=== PATIENT | female | born 1955 | race Two or more races ===

== ENCOUNTER → 2016-04-30 | Outpatient (CLI) | payer BC ==
[2016-04-30 21:02] LABS: Hepatitis B Surface Antibody Negative
== END | disposition home or self-care (01) ==
LOC: LAB 10:28
PROVIDERS: ATTEND Internal Medicine Cardiovascular Disease
DX: K75.9 Inflammatory liver disease, unspecified (principal)
CPT/HCPCS: 36415; 86704; 86706; 86708; 86803; 87340

== ENCOUNTER → 2016-08-31 | Outpatient (CLI) | payer BC ==
[2016-08-31 12:45] LABS: Basophils # (auto) 0 uL; Basophils % (auto) 0.5 % (0.0-2.0); Eosinophils # (auto) 0.2 uL; Eosinophils % (auto) 2.2 % (0.0-7.0); Hematocrit 45.8 % (36.0-46.0); Hemoglobin 15.4 g/dL (12.2-16.2); Lymphocytes # (auto) 2.9 uL; Lymphocytes % (auto) 38.4 % (10.0-50.0); Mean Corpuscular Hgb Conc. 33.7 g/dL (32.0-36.0); Mean Corpuscular Volume 92.2 fL (80.0-100.0); Mean Platelet Volume 10.3 fL (7.4-10.4); Monocytes # (auto) 0.4 uL; Monocytes % (auto) 5.4 % (0.0-12.0); Neutrophils # (auto) 4.1 uL; Neutrophils % (auto) 53.5 % (37.0-80.0); Platelet Count (auto) 246 10^3/uL (140-450); Red Cell Distribution Width 13.2 % (11.6-16.0); White Blood Cell 7.6 10^3/uL (4.4-10.8)
[2016-08-31 12:48] LABS: Urine Bilirubin Negative (Negative); Urine Blood Negative /uL (Negative); Urine Color Yellow (Yellow); Urine Glucose Normal (Normal); Urine Ketone Negative (Negative); Urine Nitrite Negative (Negative); Urine Urobilinogen Normal (Negative)
[2016-08-31 13:07] LABS: Albumin 4.2 g/dL (3.4-5.0); BUN/Creatinine Ratio 14.7; Bilirubin, Direct 0.1 mg/dL (0-0.2); Bilirubin, Total 0.6 mg/dL (0.2-1.0); Calcium 9.7 mg/dL (8.5-10.1); Potassium 4.5 mmol/L (3.5-5.1); Total Protein 8.1 g/dL (6.4-8.2)
== END | disposition home or self-care (01) ==
LOC: LAB 10:22
PROVIDERS: ATTEND Internal Medicine Cardiovascular Disease
DX: I10 Essential (primary) hypertension (principal); E78.00 Pure hypercholesterolemia, unspecified; K74.1 Hepatic sclerosis; E11.9 Type 2 diabetes mellitus without complications; E03.9 Hypothyroidism, unspecified; D64.9 Anemia, unspecified; E55.9 Vitamin D deficiency, unspecified; N39.0 Urinary tract infection, site not specified
CPT/HCPCS: 36415; 80048; 80061; 80076; 81003; 82306; 83036; 84439; 84443; 85025; 86704; 86706; 86708; 86803; 87340

== ENCOUNTER → 2017-02-06 | Outpatient (CLI) | payer BC | END | disposition home or self-care (01) | LOC: Rad HDHVI 11:53 | PROVIDERS: ATTEND Internal Medicine Cardiovascular Disease | DX: I70.0 Atherosclerosis of aorta (principal) | CPT/HCPCS: 71020; 71101 ==

== ENCOUNTER → 2018-06-20 | Outpatient (CLI) | payer BC ==
[2018-06-20 16:15] LABS: Hematocrit 45.5 % (36.0-46.0); Hemoglobin 15.3 g/dL (12.2-16.2)
== END | disposition home or self-care (01) ==
LOC: LAB 11:54
PROVIDERS: ATTEND Internal Medicine Cardiovascular Disease
DX: D64.9 Anemia, unspecified (principal)
CPT/HCPCS: 36415; 85014; 85018

== ENCOUNTER → 2018-09-18 | Outpatient (CLI) | payer BC ==
[2018-09-18 11:55] LABS: Urine Blood Negative /uL (Negative); Urine Specific Gravity 1.022 (1.001-1.035)
[2018-09-18 12:04] LABS: Albumin 3.9 g/dL (3.4-5.0); Calcium 9.1 mg/dL (8.5-10.1)
[2018-09-18 12:10] LABS: BUN/Creatinine Ratio 21.4; Bilirubin, Total 0.5 mg/dL (0.2-1.0); Total Protein 7.1 g/dL (6.4-8.2)
[2018-09-18 12:15] LABS: Basophils # (auto) 0 uL; Basophils % (auto) 0.7 % (0.0-2.0); Eosinophils # (auto) 0.2 uL; Eosinophils % (auto) 3.2 % (0.0-7.0); Hematocrit 42.5 % (36.0-46.0); Hemoglobin 14.1 g/dL (12.2-16.2); Lymphocytes # (auto) 2.8 uL; Lymphocytes % (auto) 43.1 % (10.0-50.0); Mean Corpuscular Hemoglobin 31.4 pg (28.0-32.0); Mean Corpuscular Hgb Conc. 33.2 g/dL (32.0-36.0); Mean Corpuscular Volume 94.5 fL (80.0-100.0); Monocytes # (auto) 0.4 uL; Monocytes % (auto) 5.4 % (0.0-12.0); Neutrophils # (auto) 3.1 uL; Neutrophils % (auto) 47.6 % (37.0-80.0); Platelet Count (auto) 220 10^3/uL (140-450); Red Blood Cells 4.49 10^6/uL (4.0-5.20); Red Cell Distribution Width 13.2 % (11.8-14.3); White Blood Cell 6.5 10^3/uL (4.4-10.8)
[2018-09-18 12:16] LABS: Free T4 (Free Thyroxine) 1.05 ng/dL (0.89-1.76)
== END | disposition home or self-care (01) ==
LOC: LAB 08:21
PROVIDERS: ATTEND Internal Medicine Cardiovascular Disease
DX: Z00.00 Encounter for general adult medical examination without abnormal findings (principal); E03.9 Hypothyroidism, unspecified; E55.9 Vitamin D deficiency, unspecified; D51.9 Vitamin B12 deficiency anemia, unspecified; N39.0 Urinary tract infection, site not specified; Z79.899 Other long term (current) drug therapy; Z20.5 Contact with and (suspected) exposure to viral hepatitis
CPT/HCPCS: 36415; 80053; 80061; 81003; 82306; 82607; 83036; 84439; 84443; 85025; 86803

== ENCOUNTER 2019-11-15 15:43 | Emergency (ER) | payer BC ==
[~2019-11-15] VITALS: Ht 152.4 cm; Wt 73.5 kg
[2019-11-15 19:21] VITALS: BP 164/74
== END 2019-11-15 19:51 | disposition home or self-care (01) ==
LOC: ER 15:43
DX: S09.90XA Unspecified injury of head, initial encounter (principal); W19.XXXA Unspecified fall, initial encounter; Y93.89 Activity, other specified; Y92.89 Other specified places as the place of occurrence of the external cause; Y99.8 Other external cause status
CPT/HCPCS: 70450

== ENCOUNTER 2024-08-24 11:23 | Outpatient (CLI) | payer MEDICARE, BC ==
[2024-08-24 11:20] VITALS: BP 151/90; PULSE 70; RESP 18; O2SAT 99
[2024-08-24] MEDS: IRON SUCROSE COMPLEX 110 ML IV ONE (11:30)
[2024-08-24] MEDS: IRON SUCROSE 20 mg/ml 10ml VIAL IV ONE (11:32)
[2024-08-24 12:36] VITALS: BP 134/72; PULSE 63; RESP 16; O2SAT 99
== END 2024-08-24 17:00 | disposition home or self-care (01) ==
LOC: CHF HDHVI 11:23
PROVIDERS: ATTEND Internal Medicine Cardiovascular Disease
DX: D50.9 Iron deficiency anemia, unspecified (principal); D64.9 Anemia, unspecified; R53.83 Other fatigue; I78.0 Hereditary hemorrhagic telangiectasia; I10 Essential (primary) hypertension; E03.9 Hypothyroidism, unspecified; D51.9 Vitamin B12 deficiency anemia, unspecified; E55.9 Vitamin D deficiency, unspecified; E78.00 Pure hypercholesterolemia, unspecified; E11.9 Type 2 diabetes mellitus without complications; M81.0 Age-related osteoporosis without current pathological fracture; Z87.440 Personal history of urinary (tract) infections; Z79.899 Other long term (current) drug therapy
CPT/HCPCS: 96365; G0463; J1756

== ENCOUNTER 2024-09-10 10:21 | Outpatient (CLI) | payer MEDICARE, BC ==
[2024-09-10 10:23] VITALS: BP 121/71; PULSE 67; RESP 16; O2SAT 97
[2024-09-10] MEDS: IRON SUCROSE 20 mg/ml 10ml VIAL IV ONE (10:26)
[2024-09-10] MEDS: IRON SUCROSE COMPLEX 110 ML IV ONE (10:39)
[2024-09-10 11:44] VITALS: BP 125/61; PULSE 62; RESP 16; O2SAT 97
== END 2024-09-10 17:00 | disposition home or self-care (01) ==
LOC: CHF HDHVI 10:21
PROVIDERS: ATTEND Internal Medicine Cardiovascular Disease
DX: D50.8 Other iron deficiency anemias (principal); M81.0 Age-related osteoporosis without current pathological fracture; E03.9 Hypothyroidism, unspecified; E78.00 Pure hypercholesterolemia, unspecified; E11.9 Type 2 diabetes mellitus without complications; I11.9 Hypertensive heart disease without heart failure; Z79.899 Other long term (current) drug therapy
CPT/HCPCS: 96365; G0463; J1756

== ENCOUNTER 2024-09-14 08:00 | Outpatient (CLI) | payer MEDICARE, BC | END 2024-09-14 17:00 | disposition home or self-care (01) | LOC: Rad HDHVI 08:00 | PROVIDERS: ATTEND Internal Medicine Cardiovascular Disease | DX: I08.2 Rheumatic disorders of both aortic and tricuspid valves (principal); I11.9 Hypertensive heart disease without heart failure | CPT/HCPCS: 93306 ==

== ENCOUNTER → 2024-09-18 | Outpatient (CLI) | payer MEDICARE, BC ==
[~2024-09-18] VITALS: Ht 152.4 cm; Wt 65.8 kg
== END | disposition home or self-care (01) ==
LOC: Rad HDHVI 08:00
PROVIDERS: ATTEND Internal Medicine Cardiovascular Disease
DX: I45.10 Unspecified right bundle-branch block (principal); R00.0 Tachycardia, unspecified; Z13.6 Encounter for screening for cardiovascular disorders; I10 Essential (primary) hypertension; E11.9 Type 2 diabetes mellitus without complications; R06.02 Shortness of breath; R07.89 Other chest pain; E78.00 Pure hypercholesterolemia, unspecified; Z82.49 Family history of ischemic heart disease and other diseases of the circulatory system
CPT/HCPCS: 78452; 93017; A9500; 96374

== ENCOUNTER 2024-10-07 10:27 | Outpatient (CLI) | payer MEDICARE, BC ==
[2024-10-07 10:30] VITALS: BP 106/67; PULSE 67; RESP 16; O2SAT 99
[2024-10-07] MEDS: IRON SUCROSE 20 mg/ml 10ml VIAL IV ONE (10:33)
[2024-10-07] MEDS: IRON SUCROSE COMPLEX 110 ML IV ONE (10:35)
[2024-10-07 11:49] VITALS: BP 131/69; PULSE 84; RESP 17; O2SAT 97
== END 2024-10-07 17:00 | disposition home or self-care (01) ==
LOC: CHF HDHVI 10:27
PROVIDERS: ATTEND Internal Medicine Cardiovascular Disease
DX: D50.0 Iron deficiency anemia secondary to blood loss (chronic) (principal); K92.2 Gastrointestinal hemorrhage, unspecified; I11.9 Hypertensive heart disease without heart failure; I78.0 Hereditary hemorrhagic telangiectasia; E11.9 Type 2 diabetes mellitus without complications; M81.0 Age-related osteoporosis without current pathological fracture; E78.00 Pure hypercholesterolemia, unspecified; E03.9 Hypothyroidism, unspecified; Z79.899 Other long term (current) drug therapy
CPT/HCPCS: 96365; G0463; J1756

== ENCOUNTER 2024-10-19 10:26 | Outpatient (CLI) | payer MEDICARE, BC ==
[2024-10-19 10:35] VITALS: BP 122/62; PULSE 66; RESP 16; O2SAT 99
[2024-10-19] MEDS: IRON SUCROSE 20 mg/ml 10ml VIAL IV ONE (10:51)
[2024-10-19] MEDS: IRON SUCROSE COMPLEX 110 ML IV ONE (10:53)
[2024-10-19 11:55] VITALS: BP 113/67; PULSE 62; RESP 16; O2SAT 99
== END 2024-10-19 17:00 | disposition home or self-care (01) ==
LOC: CHF HDHVI 10:26
PROVIDERS: ATTEND Internal Medicine Cardiovascular Disease
DX: D50.0 Iron deficiency anemia secondary to blood loss (chronic) (principal); K92.2 Gastrointestinal hemorrhage, unspecified; M81.0 Age-related osteoporosis without current pathological fracture; I78.0 Hereditary hemorrhagic telangiectasia; I11.9 Hypertensive heart disease without heart failure; E03.9 Hypothyroidism, unspecified; E78.00 Pure hypercholesterolemia, unspecified; E11.9 Type 2 diabetes mellitus without complications; Z79.899 Other long term (current) drug therapy; Z87.440 Personal history of urinary (tract) infections
CPT/HCPCS: 96365; G0463; J1756

== ENCOUNTER 2024-11-04 10:23 | Outpatient (CLI) | payer MEDICARE, BC ==
[2024-11-04 10:43] VITALS: BP 120/69; PULSE 67; RESP 16; O2SAT 98
[2024-11-04] MEDS: IRON SUCROSE 20 mg/ml 10ml VIAL IV ONE (10:53)
[2024-11-04] MEDS: IRON SUCROSE COMPLEX 110 ML IV ONE (10:56)
[2024-11-04 12:01] VITALS: BP 117/67; PULSE 61; RESP 16; O2SAT 98
== END 2024-11-04 17:00 | disposition home or self-care (01) ==
LOC: CHF HDHVI 10:23
PROVIDERS: ATTEND Internal Medicine Cardiovascular Disease
DX: D50.0 Iron deficiency anemia secondary to blood loss (chronic) (principal); K92.2 Gastrointestinal hemorrhage, unspecified; I11.9 Hypertensive heart disease without heart failure; I78.0 Hereditary hemorrhagic telangiectasia; M81.0 Age-related osteoporosis without current pathological fracture; E03.9 Hypothyroidism, unspecified; E78.00 Pure hypercholesterolemia, unspecified; E11.9 Type 2 diabetes mellitus without complications; Z79.899 Other long term (current) drug therapy; Z87.440 Personal history of urinary (tract) infections
CPT/HCPCS: 96365; G0463; J1756

== ENCOUNTER 2024-11-18 09:56 | Outpatient (CLI) | payer MEDICARE, BC ==
[2024-11-18 10:04] VITALS: BP 152/75; PULSE 67; RESP 16; O2SAT 98
[2024-11-18] MEDS: IRON SUCROSE 20 mg/ml 10ml VIAL IV ONE (10:25)
[2024-11-18] MEDS: IRON SUCROSE COMPLEX 110 ML IV ONE (10:31)
[2024-11-18 11:36] VITALS: BP 146/72; PULSE 64; RESP 16; O2SAT 98
== END 2024-11-18 17:00 | disposition home or self-care (01) ==
LOC: CHF HDHVI 09:56
PROVIDERS: ATTEND Internal Medicine Cardiovascular Disease
DX: D50.0 Iron deficiency anemia secondary to blood loss (chronic) (principal); K92.2 Gastrointestinal hemorrhage, unspecified; M81.0 Age-related osteoporosis without current pathological fracture; E03.9 Hypothyroidism, unspecified; E78.00 Pure hypercholesterolemia, unspecified; E11.9 Type 2 diabetes mellitus without complications; I11.9 Hypertensive heart disease without heart failure; Z87.19 Personal history of other diseases of the digestive system; Z79.899 Other long term (current) drug therapy
CPT/HCPCS: 96365; G0463; J1756